=== PATIENT | male | born 1940 | race Caucasian/White ===

== ENCOUNTER 2017-09-21 07:37 | Emergency (ER) | payer MEDICARE, OTHER ==
--- NOTE | 2017-09-21 08:29 | ERPHSYRPT ---
- History of Present Illness Time Seen by Provider: 09/21/17 08:00 Source: patient Exam Limitations: clinical condition Patient Subjective Stated Complaint: co constipation and was seen dr brown yesterday and had xrays done and was given mag citrate and had liquid stool only Triage Nursing Assessment: pt alert, walked in, resp easy, skin w/d/p, abd soft Physician History: PATIENT WITH A HISTORY OF CONSTIPATION OVER THE PAST 2 WEEKS, HAS GIVEN HIMSELF 2 PARTIAL DISIMPACTIONS, EVALUATED BY HIS PRIMARY CARE PROVIDER YESTERDAY HAD A NORMAL 2 VIEW ABDOMINAL XRAY CONSISTENT WITH LITTLE OR NO FECAL DEBRIS. TOOK A DOSE OF MAGNESIUM CITRATE YESTERDAY WITHOUT RESULTS. JOSE MANUEL ABDOMINAL PAIN, NAUSEA OR EMESIS. Timing/Duration: week(s) Severity: mild Modifying Factors: Improves With: nothing Associated Symptoms: denies symptoms Allergies/Adverse Reactions: sulfamethoxazole [From Bactrim] Allergy (Verified 09/21/17 07:53) trimethoprim [From Bactrim] Allergy (Verified 09/21/17 07:53) Home Medications: Ciclopirox Olamine [Ciclopirox] 1 ea DAILY 09/21/17 [History] Diclofenac Sodium [Diclofenac Sodium] 1 tube DAILY 09/21/17 [History] Metformin HCl 500 mg [Glucophage 500 MG] 850 mg DAILY 09/21/17 [History] Nortriptyline HCl [Nortriptyline HCl] 10 mg DAILY 09/21/17 [History] Hx Influenza Vaccination/Date Given: Yes Hx Pneumococcal Vaccination/Date Given: Yes - Review of Systems Constitutional: No Fever, No Chills Eyes: No Symptoms Ears, Nose, & Throat: No Symptoms Respiratory: No Symptoms, No Cough, No Dyspnea Cardiac: No Symptoms, No Chest Pain, No Edema, No Syncope Abdominal/Gastrointestinal: Constipation, No Abdominal Pain, No Nausea, No Vomiting, No Diarrhea Genitourinary Symptoms: No Symptoms, No Dysuria Musculoskeletal: No Symptoms, No Back Pain, No Neck Pain Skin: No Rash Neurological: No Dizziness, No Focal Weakness, No Sensory Changes Psychological: No Symptoms Endocrine: No Symptoms All Other Systems: Reviewed and Negative - Past Medical History Pertinent Past Medical History: Yes Cardiac History: Hypertension Endocrine Medical History: Diabetes Type II - Past Surgical History Past Surgical History: Yes Musculoskeletal: Orthopedic Surgery Male Surgical History: Prostate Surgery Other Surgical History: knee replacemant ,back surgery ,prostrate removed - Social History Smoking Status: Never smoker Exposure to second hand smoke: No Drug Use: none Patient Lives Alone: No - Nursing Vital Signs Nursing Vital Signs: Initial Vital Signs Temperature 97.5 F 09/21/17 07:42 Pulse Rate 107 H 09/21/17 07:42 Respiratory Rate 16 09/21/17 07:42 Blood Pressure 169/99 09/21/17 07:42 O2 Sat by Pulse Oximetry 96 09/21/17 07:42 Pain Scale Pain Intensity 0 - Physical Exam General Appearance: no apparent distress, alert Eye Exam: PERRL/EOMI, eyes nml inspection Ears, Nose, Throat Exam: normal ENT inspection, TMs normal, pharynx normal, moist mucous membranes Neck Exam: normal inspection, non-tender, supple, full range of motion Respiratory Exam: normal breath sounds, lungs clear, No respiratory distress Cardiovascular Exam: regular rate/rhythm, normal heart sounds, normal peripheral pulses Gastrointestinal/Abdomen Exam: soft, normal bowel sounds, other (NONTENDER, NO PALPABLE MASSES), No tenderness, No mass Rectal Exam: normal exam, normal rectal tone (NO PALPABLE STOOL NOTED) Back Exam: normal inspection, normal range of motion, No CVA tenderness, No vertebral tenderness Extremity Exam: normal inspection, normal range of motion, pelvis stable Neurologic Exam: alert, oriented x 3, cooperative, normal mood/affect, nml cerebellar function, nml station & gait, sensation nml, No motor deficits Skin Exam: normal color, warm, dry, No rash Lymphatic Exam: No adenopathy SpO2 Interpretation: normal SpO2: 96 - Progress Progress: unchanged Progress Note: 09/21/17 08:29 DISCUSSED WITH PATIENT IN DETAIL, UNABLE TO PALPATE STOOL IN HIS RECTAL VAULT AND ALSO HIS 2 VIEW ABDOMINAL XRAY YESTERDAY WAS NEGATIVE FOR FECAL DEBRIS. ADVISE PATIENT TO DISCONTINUE LAXATIVES AND RESUME HIS NORMAL DIET. Counseled pt/family regarding: diagnosis, need for follow-up - Departure Time of Disposition: 08:35 Departure Disposition: Home Clinical Impression: HISTORY OF CONSTIPATION Condition: Stable Critical Care Time: No Referrals: MICHAEL BROWN [Primary Care Provider] - Additional Instructions: CONTINUE ALL CURRENT MEDICATIONS, RESUME YOUR REGULAR DIET. CONSULT YOUR PRIMARY CARE PROVIDER THIS WEEK FOR EVALUATION. DRINK PLENTY OF FLUIDS.
[2017-09-21 09:03] VITALS: BP 169/84; PULSE 78; O2SAT 98
== END 2017-09-21 09:02 | disposition home or self-care (01) ==
LOC: ED 07:37
DX: Z03.89 Encounter for observation for other suspected diseases and conditions ruled out (principal); Z79.899 Other long term (current) drug therapy
CPT/HCPCS: 99283